=== PATIENT | female | born 1940 | race Caucasian/White ===

== ENCOUNTER 2019-09-05 15:06 | Emergency (ER) | payer OTHER ==
[2019-09-05] MEDS ORDERED: NA CHLORIDE 0.9% 500 ML ONE (19:17)
[2019-09-05] MEDS ORDERED: ACETAMINOPHEN 325 MG TABLET ONE (19:29)
--- NOTE | 2019-09-05 20:10 | RAD REPORT ---
EXAM DESCRIPTION: RAD - Foot Right 3 View - 09/05/2019 8:01 pm CLINICAL HISTORY: PAIN, soft tissue. COMPARISON: No comparisons FINDINGS: No fracture, dislocation or periosteal reaction. IP joint space narrowing present without erosion or spurring component. First MTP joint is narrowed. Hallux valgus deformity at the first MTP joint. No air or foreign body in the soft tissues. IMPRESSION: Degenerative change and hallux valgus changes of the first MTP joint. No acute or destructive bone process. No suspicious soft tissue finding.
[2019-09-05 20:29] LABS: Absolute Lymphocytes (CBC) 4.4 K/uL (0.7-4.9); Albumin 4.1 g/dL (3.4-5.0); Basophils % 0.4 % (0-1.3); Bilirubin Total 0.4 mg/dL (0.2-1.0); Hematocrit 43.9 % (36.0-45.0); Lymphocytes % 36.1 % (15.3-44.8); MPV 9.3 fL (7.6-11.3); Potassium 3.7 mmol/L (3.5-5.1); Protein, Total 7.8 g/dL (6.4-8.2); RBC Red Blood Cell Count 4.95 M/uL (3.86-4.86)
--- NOTE | 2019-09-05 20:52 | EDPHYS ---
Physician Documentation [facility] Name: Irma Thurman Age: 79 yrs Sex: Female : 1940 Arrival Date: 09/05/2019 Time: 15:09 Bed 19 Private MD: ED Physician Jose Juan Zimmerman HPI: 09/04 19:02 This 79 yrs old Female presents to ER via Ambulatory with complaints of Foot greg Pain - sore. 19:02 The patient presents with decreased range of motion, pain. The complaints affect the greg right foot, right foot. Context: The problem was sustained at an unknown location. Onset: The symptoms/episode began/occurred 2 day(s) ago. Modifying factors: The symptoms are alleviated by elevation of extremity, the symptoms are aggravated by weight bearing, wearing shoes. Associated signs and symptoms: The patient has no apparent associated signs or symptoms. Severity of symptoms: At their worst the symptoms were mild, moderate, in the emergency department the symptoms are unchanged. The patient has not experienced similar symptoms in the past, 3 weeks ago stent in right lower extremity. Historical: - Allergies: 15:18 all pain medications; sv 15:18 Codeine; sv 15:18 Erythromycin; sv 15:18 Ijcpvni-Wcd-Oxu Reductase Inhibitors; sv - PMHx: 15:18 Hypertension; sv - PSHx: 15:18 Cholecystectomy; sv - Immunization history:: Adult Immunizations up to date. - Family history:: not pertinent. - Social history:: Smoking status: unknown. ROS: 19:02 Constitutional: Negative for fever, chills, and weight loss, Eyes: Negative for injury, greg pain, redness, and discharge, ENT: Negative for injury, pain, and discharge, Neck: Negative for injury, pain, and swelling, Cardiovascular: Negative for chest pain, palpitations, and edema, Respiratory: Negative for shortness of breath, cough, wheezing, and pleuritic chest pain, Abdomen/GI: Negative for abdominal pain, nausea, vomiting, diarrhea, and constipation, Back: Negative for injury and pain, : Negative for injury, bleeding, discharge, and swelling, Skin: Negative for injury, rash, and discoloration, Neuro: Negative for headache, weakness, numbness, tingling, and seizure, Psych: Negative for depression, anxiety, suicide ideation, homicidal ideation, and hallucinations, Allergy/Immunology: Negative for hives, rash, and allergies, Endocrine: Negative for neck swelling, polydipsia, polyuria, polyphagia, and marked weight changes, Hematologic/Lymphatic: Negative for swollen nodes, abnormal bleeding, and unusual bruising. 19:02 MS/extremity: Positive for decreased range of motion, pain, warmth, of the right foot. Exam: 19:02 Constitutional: This is a well developed, well nourished patient who is awake, alert, greg and in no acute distress. Head/Face: Normocephalic, atraumatic. Eyes: Pupils equal round and reactive to light, extra-ocular motions intact. Lids and lashes normal. Conjunctiva and sclera are non-icteric and not injected. Cornea within normal limits. Periorbital areas with no swelling, redness, or edema. ENT: Nares patent. No nasal discharge, no septal abnormalities noted. Tympanic membranes are normal and external auditory canals are clear. Oropharynx with no redness, swelling, or masses, exudates, or evidence of obstruction, uvula midline. Mucous membranes moist. Neck: Trachea midline, no thyromegaly or masses palpated, and no cervical lymphadenopathy. Supple, full range of motion without nuchal rigidity, or vertebral point tenderness. No Meningismus. Chest/axilla: Normal chest wall appearance and motion. Nontender with no deformity. No lesions are appreciated. Cardiovascular: Regular rate and rhythm with a normal S1 and S2. No gallops, murmurs, or rubs. Normal PMI, no JVD. No pulse deficits. Respiratory: Lungs have equal breath sounds bilaterally, clear to auscultation and percussion. No rales, rhonchi or wheezes noted. No increased work of breathing, no retractions or nasal flaring. Abdomen/GI: Soft, non-tender, with normal bowel sounds. No distension or tympany. No guarding or rebound. No evidence of tenderness throughout. Back: No spinal tenderness. No costovertebral tenderness. Full range of motion. Female : Normal external genitalia. Skin: Warm, dry with normal turgor. Normal color with no rashes, no lesions, and no evidence of cellulitis. Neuro: Awake and alert, GCS 15, oriented to person, place, time, and situation. Cranial nerves II-XII grossly intact. Motor strength 5/5 in all extremities. Sensory grossly intact. Cerebellar exam normal. Normal gait. Psych: Awake, alert, with orientation to person, place and time. Behavior, mood, and affect are within normal limits. 19:02 Musculoskeletal/extremity: Extremities: erythema, pain, tenderness, ROM: full active range of motion, full passive range of motion, Circulation is intact in all extremities. Sensation intact. Compartment Syndrome exam of affected extremity: is normal. DVT Exam: negative Homans' sign noted on exam, no appreciated bluish discoloration, pain, swelling, tenderness, erythema, increased warmth. Vital Signs: 15:19 BP 191 / 61; Pulse 76; Resp 16; Temp 97.8(TE); Pulse Ox 96% ; Weight 74.84 kg; Height 5 sv ft. 2 in. (157.48 cm); 20:50 BP 168 / 60; Pulse 70; Resp 16; Pulse Ox 97% on R/A; ea 15:19 Body Mass Index 30.18 (74.84 kg, 157.48 cm) sv 15:19 Pt stated that she hasn't taken her BP meds this morning but her sister is bringing sv them to her. MDM: 18:47 Patient medically screened. greg 19:08 Data reviewed: vital signs, nurses notes, lab test result(s), EKG, radiologic studies, greg doppler, plain films. 19:08 Differential diagnosis: fracture, sprain, cellulitis. Data interpreted: Cardiac greg monitor: rate is 76 beats/min, Pulse oximetry: on room air is 96 %. Test interpretation: by ED physician or midlevel provider: ECG, plain radiologic studies. Counseling: I had a detailed discussion with the patient and/or guardian regarding: the historical points, exam findings, and any diagnostic results supporting the discharge/admit diagnosis, lab results, radiology results, the need for outpatient follow up, for definitive care, a machining and assembly supervisor. ED course: pain improved, vascular intact, no cellulitis, will follow up. 20:03 ED course: pt refused venous Doppler and arterial Doppler, no fx, will dc to follow up. greg 20:49 ED course: DP AND PT PULSES STRONG , CAPILLARY REFILL LESS THAN TWO SECONDS , NO HOMANS greg AND NO CORDS, NO TRAUMA, NO STASIS. 09/04 19:01 Order name: CBC with Diff; Complete Time: 20:[address] [facility] 09/04 19:01 Order name: Comprehensive Metabolic Panel; Complete Time: 20:[address] [facility] 09/04 19:01 Order name: Foot Right 3 View XRAY; Complete Time: 20:[address] [facility] Administered Medications: 19:48 Not Given (Patient Refused): NS 0.9% 500 ml IV at bolus once ea 19:48 Not Given (Patient Refused): Tylenol 650 mg PO once ea Disposition: 09/05/19 20:51 Discharged to Home. Impression: Pain in right foot, Other specified peripheral vascular diseases - RIGHT LEG STENT, 3 WEEKS AGO IN [facility]. - Condition is Stable. - Discharge Instructions: Musculoskeletal Pain, RICE for Routine Care of Injuries, RICE for Routine Care of Injuries, [id number], Foot Pain. - Prescriptions for Tylenol 325 mg Oral Tablet - take 2 tablet by ORAL route every 6 hours as needed; 1 bottle. - Medication Reconciliation Form, Thank You Letter, Antibiotic Education, Prescription Opioid Use form. - Follow up: Private Physician; When: 2 - 3 days; Reason: Recheck today's complaints, Continuance of care, Re-evaluation by your physician. Follow up: Casper Parrish MD; When: 2 - 3 days; Reason: Recheck today's complaints, Re-evaluation by your physician. Follow up: Rafa Urbina DPM; When: 2 - 3 days; Reason: Recheck today's complaints, Re-evaluation by your physician. - Problem is new. - Symptoms have improved. Signatures: Dispatcher [employer] EDGricelda Romeo RN RN sv Anderson, Corey, MD MD cha Antunez, Elena, RN RN ea Corrections: (The following items were deleted from the chart) 19:15 19:02 Lower Extremity Artery Uni Ltd+US.RAD.BRZ ordered. EDMS EDMS 19:15 19:02 Extremity Venous Uni Ltd+US.RAD.BRZ ordered. EDMS EDMS 20:51 20:51 09/05/2019 20:51 Discharged to Home. Impression: Pain in right foot; Other [facility] specified peripheral vascular diseases - RIGHT LEG STENT, 3 WEEKS AGO IN [facility]. Condition is Stable. Discharge Instructions: Musculoskeletal Pain, Foot Pain. Forms are Medication Reconciliation Form, Thank You Letter, Antibiotic Education, Prescription Opioid Use. Follow up: Private Physician; When: 2 - 3 days; Reason: Recheck today's complaints, Continuance of care, Re-evaluation by your physician. Problem is new. Symptoms have improved. [facility] 21:15 20:51 09/05/2019 20:51 Discharged to Home. Impression: Pain in right foot; Other ea specified peripheral vascular diseases - RIGHT LEG STENT, 3 WEEKS AGO IN [facility]. Condition is Stable. Discharge Instructions: Musculoskeletal Pain, Foot Pain. Forms are Medication Reconciliation Form, Thank You Letter, Antibiotic Education, Prescription Opioid Use. Follow up: Private Physician; When: 2 - 3 days; Reason: Recheck today's complaints, Continuance of care, Re-evaluation by your physician. Follow up: Casper Parrish; When: 2 - 3 days; Reason: Recheck today's complaints, Re-evaluation by your physician. Follow up: Dr. Rafa Urbina; When: 2 - 3 days; Reason: Recheck today's complaints, Re-evaluation by your physician. Problem is new. Symptoms have improved. [facility]
--- NOTE | 2019-09-05 20:52 | ER ---
Nurse's Notes [facility] Name: Irma Thurman Age: 79 yrs Sex: Female : 1940 Arrival Date: 09/05/2019 Time: 15:09 Bed 19 Private MD: Diagnosis: Pain in right foot;Other specified peripheral vascular diseases-RIGHT LEG STENT, 3 WEEKS AGO IN [facility] Presentation: 09/04 15:18 Chief complaint: Patient states: right foot pain x 1 week ago. Denies injury. 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 Risk Assessment: Do you want to hurt yourself or someone else? Patient reports no desire to harm self or others. Onset of symptoms was August 28, 2019. 15:18 Method Of Arrival: Ambulatory sv 15:18 Acuity: RUTH 3 sv 15:19 Coronavirus screen: Proceed with normal triage. Patient denies a cough. Patient denies sv shortness of breath or difficulty breathing. Patient denies measured and/or subjective temperature greater than 100.4F prior to today's visit. Patient denies travel on a cruise ship or to a country the [facility] currently lists as an affected area. Patient denies contact with known and/or suspected case of COVID-19. Ebola Screen: No symptoms or risks identified at this time. 15:19 Initial Sepsis Screen: Does the patient meet any 2 criteria? No. Patient's initial sv sepsis screen is negative. Does the patient have a suspected source of infection? No. Patient's initial sepsis screen is negative. Triage Assessment: 15:18 General: Appears in no apparent distress. uncomfortable, well developed. Pain: sv Complains of pain in right foot. Neuro: Level of Consciousness is awake, alert, obeys commands, Oriented to person, place, time, situation, Gait is steady. Respiratory: Respiratory effort is even, unlabored. Historical: - Allergies: 15:18 all pain medications; sv 15:18 Codeine; sv 15:18 Erythromycin; sv 15:18 Tdgingh-Ovb-Hie Reductase Inhibitors; sv - PMHx: 15:18 Hypertension; sv - PSHx: 15:18 Cholecystectomy; sv - Immunization history:: Adult Immunizations up to date. - Family history:: not pertinent. - Social history:: Smoking status: unknown. Screenin:22 Abuse screen: Denies threats or abuse. Denies injuries from another. Nutritional bp screening: No deficits noted. Tuberculosis screening: No symptoms or risk factors identified. Fall Risk None identified. Assessment: 18:21 General: SEE TRIAGE NOTE. bp 19:32 General: Appears in no apparent distress. Behavior is calm, cooperative, appropriate ea for age. Pain: Complains of pain in right foot. Neuro: Level of Consciousness is awake, alert, obeys commands, Oriented to person, place, time, situation. Respiratory: Airway is patent Respiratory effort is even, unlabored, Respiratory pattern is regular, symmetrical. Derm: Skin is normal, redness noted to right foot. 20:55 Reassessment: Patient and/or family updated on plan of care and expected duration. Pain ea level reassessed. Patient is alert, oriented x 3, equal unlabored respirations, skin warm/dry/pink. 21:10 Reassessment: Patient and/or family updated on plan of care and expected duration. Pain ea level reassessed. Patient is alert, oriented x 3, equal unlabored respirations, skin warm/dry/pink. Discharge instruction given to patient, verbalized the understanding of instruction. Pt left ED ambulatory tolerating well. Vital Signs: 15:19 BP 191 / 61; Pulse 76; Resp 16; Temp 97.8(TE); Pulse Ox 96% ; Weight 74.84 kg; Height 5 sv ft. 2 in. (157.48 cm); 20:50 BP 168 / 60; Pulse 70; Resp 16; Pulse Ox 97% on R/A; ea 15:19 Body Mass Index 30.18 (74.84 kg, 157.48 cm) sv 15:19 Pt stated that she hasn't taken her BP meds this morning but her sister is bringing sv them to her. ED Course: 15:09 Patient arrived in ED. as 15:17 Arm band placed on. sv 15:19 Triage completed. sv 18:21 Rafa Mcclelland, RN is Primary Nurse. bp 18:22 Patient has correct armband on for positive identification. Bed in low position. Call bp light in reach. Side rails up X2. 18:47 Jose Juan Zimmerman MD is Attending Physician. greg 19:13 Note: patient refuse ultrasound because had exam last week. [email or web address] 19:59 Foot Right 3 View XRAY In Process Unspecified. EDMS 20:51 Casper Parrish MD is Referral Physician. [facility] 20:51 Rafa Urbina DPM is Referral Physician. [facility] 21:00 No provider procedures requiring assistance completed. Patient did not have IV access ea during this emergency room visit. Administered Medications: 19:48 Not Given (Patient Refused): NS 0.9% 500 ml IV at bolus once ea 19:48 Not Given (Patient Refused): Tylenol 650 mg PO once ea Outcome: 20:51 Discharge ordered by . greg 21:15 Patient left the ED. ea 21:15 Discharged to home ambulatory, with family. ea 21:15 Condition: stable 21:15 Discharge instructions given to patient, Instructed on discharge instructions, follow up and referral plans. medication usage, Demonstrated understanding of instructions, follow-up care, medications, Prescriptions given X 1. Signatures: Dispatcher [employer] Gricelda Cosby RN RN sv Anderson, Corey, MD MD cha Martinez, Amelia as Dupre, Jacques jd Antunez, Elena, RN RN ea Peltier, Brian, RN RN bp Corrections: (The following items were deleted from the chart) 15:21 15:18 Chief complaint: Patient states: right foot pain x 1 week ago. Denies injury. sv sv 15:22 15:19 74.84 kg; Height 5 ft. 2 in.; BMI: 30.1; sv sv 15:23 15:18 Acuity: RUTH 4 sv sv 15:23 15:19 Pulse 76bpm; Resp 16bpm; Temp 97.8F Temporal; 74.84 kg; Height 5 ft. 2 in.; BMI: sv 30.1; sv 17:04 15:19 BP 191 / 61; Pulse 76bpm; Resp 16bpm; Pulse Ox 96%; Temp 97.8F Temporal; 74.84 sv kg; Height 5 ft. 2 in.; BMI: 30.1; sv
[2019-09-05 21:52] VITALS: BP 191/61; TEMP 97.8; O2SAT 96
== END 2019-09-05 21:15 | disposition home or self-care (01) ==
LOC: ER 15:06
DX: I73.89 Other specified peripheral vascular diseases (principal); I10 Essential (primary) hypertension; Z88.3 Allergy status to other anti-infective agents; Z88.5 Allergy status to narcotic agent; Z88.6 Allergy status to analgesic agent; Z88.8 Allergy status to other drugs, medicaments and biological substances
CPT/HCPCS: 85025; 36415; 80053; 73630; 99283; J7040